=== PATIENT | female | born 1975 | race African-American/Black ===

== ENCOUNTER 2016-06-19 23:40 | Emergency (ER) | payer SELFPAY ==
--- NOTE | 2016-06-20 | NUR ---
FIRST INITAL CALL [facility] TRIAGE FOR VS AND GENERAL INFO. PT INFORMED NO BEDS AT THIS TIME BUT WILL BE TRAIGED AND BROUGHT BACK IN THE LOBBY UNTIL A BED SURFACES. PT STATES "I DONT WANT NO VS TO BE TAKENL IF AM GONNA COME BACK HERE THEN I DONT WANNA GO ANYWHERE UNTIL YOU GET A BED AND THEN YOU CAN GET ME".
--- NOTE | 2016-06-20 00:25 | NUR ---
NSG SUP INFORMED ABOUT PT'S DECISION AND NO BED AVAILABILITY AT THIS TIME.
--- NOTE | 2016-06-20 01:10 | NUR ---
CALLED FOR TRIAGE; INFORMED "PT WENT TO GET A SODA".
--- NOTE | 2016-06-20 01:33 | NUR ---
CALLED AGAIN FOR TRIAGE; NO ANSWER AND NOT IN LOBBY.
--- NOTE | 2016-06-20 02:11 | NUR ---
CALLED AGAIN [facility] TRIAGE; NOT IN LOBBY. INFORMED "PT LEFT".
== END 2016-06-20 02:15 | disposition left against medical advice (07) ==
LOC: ER 23:44
DX: Z53.21 Procedure and treatment not carried out due to patient leaving prior to being seen by health care provider (principal)